=== PATIENT | female | born 1945 | race Asian ===

== ENCOUNTER 2022-04-27 18:57 | Inpatient (IN) | payer MEDICARE, MEDICAID ==
[~2022-04-27] VITALS: Ht 162.6 cm; Wt 61.0 kg
[2022-04-27 21:18] LABS: Basophils # (auto) 0 10 ^3/uL (0-0.2); Basophils % (auto) 0.5 % (0.0-2.0); Eosinophils # (auto) 0 10 ^3/uL (0-0.8); Eosinophils % (auto) 0.8 % (0.0-7.0); Hematocrit 47.3 % (36.0-46.0); Hemoglobin 15.4 g/dL (12.2-16.2); Lymphocytes # (auto) 1.3 10 ^3/uL (0.4-5.4); Lymphocytes % (auto) 24.5 % (10.0-50.0); Mean Corpuscular Hgb Conc. 32.5 g/dL (32.0-36.0); Mean Corpuscular Volume 95.3 fL (80.0-100.0); Monocytes # (auto) 0.4 10 ^3/uL (0-1.3); Monocytes % (auto) 7.7 % (0.0-12.0); Neutrophils # (auto) 3.6 10 ^3/uL (1.6-8.6); Neutrophils % (auto) 66.5 % (37.0-80.0); Nucleated Red Blood Cells % 0.1 %; Red Blood Cells 4.96 10^6/uL (4.0-5.20); White Blood Cell 5.4 10^3/uL (4.4-10.8)
[2022-04-27 21:29] LABS: INR 1.12 (0.9-1.15); Partial Thromboplastin Time 25.8 sec (24.6-33.4)
[2022-04-27 21:31] LABS: Potassium 4.6 mmol/L (3.5-5.1)
[2022-04-27 21:32] LABS: Albumin 3.1 g/dL (3.4-5.0); BUN/Creatinine Ratio 31.3
[2022-04-27 21:34] LABS: Bilirubin, Total 0.9 mg/dL (0.2-1.0); Total Protein 6.6 g/dL (6.4-8.2)
[2022-04-27] MEDS ORDERED: ENOXAPARIN SOD 60 MG/0.6 ML SYRINGE SC ONE (22:30)
[2022-04-27] MEDS ORDERED: AZITHROMYCIN 500MG/ 250ML 250 ML IV ONE (22:30)
[2022-04-27] MEDS ORDERED: FUROSEMIDE 20 MG/2 ML VIAL IV ONE (22:30)
[2022-04-27] MEDS ORDERED: DEXTROSE (50%) 50ML SYRG IV PRN (23:15)
[2022-04-27] MEDS ORDERED: ACETAMINOPHEN 325 MG TAB PO PRN (23:15)
[2022-04-27] MEDS ORDERED: HYDROcodone-ACET 5/325MG TAB PO PRN (23:15)
[2022-04-27] MEDS ORDERED: DOCUSATE SOD 100 MG CAP PO PRN (23:15)
[2022-04-27] MEDS ORDERED: ONDANSETRON HCL 4 MG/2 ML VIAL IV PRN (23:15)
[2022-04-27] MEDS ORDERED: MORPHINE SULFATE INJ 2 MG/ml SYRG IV PRN (23:30)
[2022-04-27] MEDS ORDERED: NITROGLYCERIN 0.4 MG SL TAB SL PRN (23:30)
[2022-04-28] MEDS ORDERED: MAGNESIUM SULFATE 1GM/100ML 100 ML IV ONE
[2022-04-28 01:48] LABS: Urine Bacteria FEW /hpf (None Seen); Urine Blood Negative /uL (Negative); Urine Mucus FEW (None Seen); Urine Specific Gravity 1.008 (1.001-1.035); Urine WBC 37 /hpf (0 - 5)
[2022-04-28 05:24] LABS: Basophils # (auto) 0 10 ^3/uL (0-0.2); Basophils % (auto) 0.7 % (0.0-2.0); Eosinophils # (auto) 0.1 10 ^3/uL (0-0.8); Eosinophils % (auto) 1.3 % (0.0-7.0); Hematocrit 46.2 % (36.0-46.0); Hemoglobin 15.1 g/dL (12.2-16.2); Lymphocytes # (auto) 1.9 10 ^3/uL (0.4-5.4); Lymphocytes % (auto) 36.9 % (10.0-50.0); Mean Corpuscular Hgb Conc. 32.6 g/dL (32.0-36.0); Mean Corpuscular Volume 95.1 fL (80.0-100.0); Monocytes # (auto) 0.6 10 ^3/uL (0-1.3); Monocytes % (auto) 10.5 % (0.0-12.0); Neutrophils # (auto) 2.7 10 ^3/uL (1.6-8.6); Neutrophils % (auto) 50.6 % (37.0-80.0); Nucleated Red Blood Cells % 0.1 %; Red Blood Cells 4.87 10^6/uL (4.0-5.20); Red Cell Distribution Width 14.7 % (11.8-14.3); White Blood Cell 5.3 10^3/uL (4.4-10.8)
[2022-04-28 05:38] LABS: Albumin 3.1 g/dL (3.4-5.0); Calcium 8.2 mg/dL (8.5-10.1); Potassium 3.5 mmol/L (3.5-5.1)
[2022-04-28] MEDS ORDERED: ALBUTEROL SULF HFA 90MCG INH 200DOSE IN SCH (06:00)
[2022-04-28] MEDS: SODIUM CHLOR 0.9% PF (SALINE LOCK) 10ML VIAL/SYR IV SCH ×2 (06:01→14:36)
[2022-04-28] MEDS: InsuLIN REG 1unit/0.01ml Soln (100units/ml) SC SCH ×4 (07:00→22:00)
[2022-04-28] MEDS: ACCU-CHEK COMFORT CURVE STRIP VI SCH ×4 (07:03→23:59)
[2022-04-28] MEDS: ASPirin 81 mg TAB PO SCH (10:25)
[2022-04-28] MEDS: FAMOTIDINE (10MG/ML) 2ML VL IV SCH (10:25)
[2022-04-28] MEDS: ENOXAPARIN SOD 30 MG/0.3 ML SYRINGE SC SCH (10:28)
[2022-04-28 22:00] VITALS: BP 148/87
[2022-04-28] MEDS ORDERED: CARVEDILOL 3.125 MG TAB PO ONE (23:45)
[2022-04-28] MEDS ORDERED: DAPA1TAB4 PO (23:54)
[2022-04-28] MEDS ORDERED: CARV3.1240 PO (23:54)
[2022-04-28] MEDS ORDERED: VERI5TAB PO (23:54)
[2022-04-28] MEDS ORDERED: SACU1TAB7 PO (23:54)
[2022-04-29] MEDS: AZITHROMYCIN 500MG/ 250ML 250 ML IV SCH ×2 (00:01→22:36)
[2022-04-29 05:00] VITALS: BP 147/89
[2022-04-29] MEDS: SODIUM CHLOR 0.9% PF (SALINE LOCK) 10ML VIAL/SYR IV SCH ×4 (06:06→21:16)
[2022-04-29] MEDS: InsuLIN REG 1unit/0.01ml Soln (100units/ml) SC SCH ×4 (06:06→21:23)
[2022-04-29] MEDS: ACCU-CHEK COMFORT CURVE STRIP VI SCH ×4 (06:08→21:16)
[2022-04-29 09:00] VITALS: BP 158/98
[2022-04-29] MEDS: FAMOTIDINE (10MG/ML) 2ML VL IV SCH (10:42)
[2022-04-29] MEDS: cefTRIAXone 1GM/50ML D5W 50 ML IV SCH ×2 (10:42→21:16)
[2022-04-29] MEDS: ASPirin 81 mg TAB PO SCH (10:42)
[2022-04-29] MEDS: ENOXAPARIN SOD 30 MG/0.3 ML SYRINGE SC SCH (10:42)
[2022-04-29] MEDS: ENTRESTO PO SCH ×2 (10:51→21:15)
[2022-04-29 13:00] VITALS: BP 127/78
[2022-04-29] MEDS ORDERED: ALBUTEROL SULF 2.5 MG/0.5ML(0.5%) NEB SOLN NEB PRN (13:45)
[2022-04-29 15:19] VITALS: BP 158/98
[2022-04-29] MEDS ORDERED: ALBUTEROL MEDNEB 2.5 mg/3ml NEB ONE ×2 (15:34→17:58)
[2022-04-29] MEDS: ALBUTEROL SULF 2.5 MG/0.5ML(0.5%) NEB SOLN NEB SCH ×2 (15:39→18:00)
[2022-04-29 17:00] VITALS: BP 147/92
[2022-04-29] MEDS: ATORVASTATIN 20 MG TAB PO SCH ×2 (21:14)
[2022-04-29 22:00] VITALS: BP 149/87
[2022-04-30] MEDS ORDERED: ALBUTEROL MEDNEB 2.5 mg/3ml NEB ONE ×2 (00:03→06:12)
[2022-04-30] MEDS: ALBUTEROL SULF 2.5 MG/0.5ML(0.5%) NEB SOLN NEB SCH ×2 (00:19→07:26)
[2022-04-30 05:00] VITALS: BP 142/83
[2022-04-30] MEDS: ACCU-CHEK COMFORT CURVE STRIP VI SCH ×4 (06:26→22:10)
[2022-04-30] MEDS: InsuLIN REG 1unit/0.01ml Soln (100units/ml) SC SCH ×4 (06:26→22:13)
[2022-04-30] MEDS: SODIUM CHLOR 0.9% PF (SALINE LOCK) 10ML VIAL/SYR IV SCH ×3 (06:26→22:09)
[2022-04-30 08:00] VITALS: BP 146/80
[2022-04-30 08:48] VITALS: BP 146/80
[2022-04-30] MEDS: FAMOTIDINE (10MG/ML) 2ML VL IV SCH (09:19)
[2022-04-30] MEDS: ASPirin 81 mg TAB PO SCH (09:19)
[2022-04-30] MEDS: ENOXAPARIN SOD 30 MG/0.3 ML SYRINGE SC SCH (09:20)
[2022-04-30] MEDS: ENTRESTO PO SCH ×2 (09:20→22:06)
[2022-04-30] MEDS: cefTRIAXone 1GM/50ML D5W 50 ML IV SCH ×2 (09:20→21:16)
[2022-04-30] MEDS ORDERED: ALBUTEROL MEDNEB 2.5 mg/3ml NEB NEB PRN (11:00)
[2022-04-30] MEDS: FUROSEMIDE 40 MG/4 ML VIAL IV SCH ×2 (11:14→17:53)
[2022-04-30] MEDS: ALBUTEROL MEDNEB 2.5 mg/3ml NEB NEB SCH ×2 (12:14→18:51)
[2022-04-30 13:22] VITALS: BP 137/86
[2022-04-30 16:40] VITALS: BP 130/80
[2022-04-30 22:00] VITALS: BP 156/78
[2022-04-30] MEDS ORDERED: SACUBITRIL-VALSARTAN 24mg/26mg TAB PO SCH (22:00)
[2022-04-30] MEDS: ATORVASTATIN 20 MG TAB PO SCH (22:05)
[2022-04-30] MEDS: AZITHROMYCIN 500MG/ 250ML 250 ML IV SCH (22:07)
[2022-05-01 05:00] VITALS: BP 135/72
[2022-05-01] MEDS: SODIUM CHLOR 0.9% PF (SALINE LOCK) 10ML VIAL/SYR IV SCH ×3 (06:14→21:45)
[2022-05-01] MEDS: ACCU-CHEK COMFORT CURVE STRIP VI SCH ×4 (06:14→21:46)
[2022-05-01] MEDS: InsuLIN REG 1unit/0.01ml Soln (100units/ml) SC SCH ×4 (06:14→21:51)
[2022-05-01] MEDS: FUROSEMIDE 40 MG/4 ML VIAL IV SCH ×2 (06:25→17:33)
[2022-05-01] MEDS: EMPAGLIFLOZIN 10 MG TAB PO SCH (06:25)
[2022-05-01] MEDS: ALBUTEROL MEDNEB 2.5 mg/3ml NEB NEB SCH ×3 (06:30→18:23)
[2022-05-01 07:40] VITALS: BP 129/75
[2022-05-01 09:30] VITALS: BP 129/75
[2022-05-01] MEDS: cefTRIAXone 1GM/50ML D5W 50 ML IV SCH ×2 (09:57→21:01)
[2022-05-01] MEDS: ASPirin 81 mg TAB PO SCH (09:58)
[2022-05-01] MEDS: ENTRESTO PO SCH ×2 (09:58→21:43)
[2022-05-01] MEDS: ENOXAPARIN SOD 30 MG/0.3 ML SYRINGE SC SCH (09:58)
[2022-05-01 12:42] VITALS: BP 139/60
[2022-05-01 16:13] VITALS: BP 136/79
[2022-05-01] MEDS: SODIUM CHLORIDE 0.9% 1,000 ML IV SCH (19:53)
[2022-05-01] MEDS: CARVEDILOL 3.125 MG TAB PO SCH (21:44)
[2022-05-01] MEDS: TEMAZEPAM 15 MG CAP PO PRN (21:45)
[2022-05-01] MEDS: AZITHROMYCIN 500MG/ 250ML 250 ML IV SCH (21:45)
[2022-05-01] MEDS: ATORVASTATIN 20 MG TAB PO SCH (21:45)
[2022-05-01 21:53] LABS: Basophils # (auto) 0 10 ^3/uL (0-0.2); Eosinophils # (auto) 0.1 10 ^3/uL (0-0.8); Eosinophils % (auto) 2.4 % (0.0-7.0); Hematocrit 47.8 % (36.0-46.0); Lymphocytes # (auto) 1.2 10 ^3/uL (0.4-5.4); Lymphocytes % (auto) 25.1 % (10.0-50.0); Mean Corpuscular Hemoglobin 31.4 pg (28.0-32.0); Mean Corpuscular Hgb Conc. 33.5 g/dL (32.0-36.0); Mean Corpuscular Volume 93.6 fL (80.0-100.0); Monocytes # (auto) 0.5 10 ^3/uL (0-1.3); Monocytes % (auto) 10.4 % (0.0-12.0); Neutrophils % (auto) 61.1 % (37.0-80.0); Nucleated Red Blood Cells % 0.1 %; Red Blood Cells 5.11 10^6/uL (4.0-5.20); Red Cell Distribution Width 14.8 % (11.8-14.3); White Blood Cell 4.9 10^3/uL (4.4-10.8)
[2022-05-01 22:00] VITALS: BP 111/71
[2022-05-01 22:06] LABS: Calcium 9.5 mg/dL (8.5-10.1); Potassium 3.2 mmol/L (3.5-5.1)
[2022-05-01 22:07] LABS: BUN/Creatinine Ratio 24.2
[2022-05-01 22:11] LABS: INR 1.09 (0.9-1.15)
[2022-05-02] VITALS (12 sets, daily range): BP systolic 109–139; BP diastolic 56–81
[2022-05-02] MEDS: SODIUM CHLOR 0.9% PF (SALINE LOCK) 10ML VIAL/SYR IV SCH ×3 (05:57→21:58)
[2022-05-02] MEDS: FUROSEMIDE 40 MG/4 ML VIAL IV SCH ×2 (06:00→17:38)
[2022-05-02] MEDS: EMPAGLIFLOZIN 10 MG TAB PO SCH (06:29)
[2022-05-02] MEDS: ACCU-CHEK COMFORT CURVE STRIP VI SCH ×4 (06:30→21:58)
[2022-05-02] MEDS: InsuLIN REG 1unit/0.01ml Soln (100units/ml) SC SCH ×4 (06:30→22:03)
[2022-05-02] MEDS ORDERED: POTASSIUM CHL 20MEQ/100ML 100 ML IV ONE (07:00)
[2022-05-02] MEDS: ALBUTEROL MEDNEB 2.5 mg/3ml NEB NEB SCH ×4 (07:28→18:31)
[2022-05-02] MEDS ORDERED: VANCOMYCIN 1GM/250ML 250 ML IV ONE (08:45)
[2022-05-02] MEDS ORDERED: fentaNYL CITRATE 100 MCG/2 ML VL ONE (09:26)
[2022-05-02] MEDS ORDERED: IODIXANOL 320MG/ML 100ML BTL IV ONE (09:26)
[2022-05-02] MEDS ORDERED: MIDAZOLAM HCL 2MG/2ML 2ml VIAL (1mg/ml) ONE (09:26)
[2022-05-02] MEDS ORDERED: VANCOMYCIN HCL 1000 MG VL ONE (09:27)
[2022-05-02] MEDS ORDERED: ceFAZolin 1GM VL ONE ×2 (09:27→10:04)
[2022-05-02] MEDS ORDERED: LIDOCAINE 2%HCL (LOCAL ANESTH.) INJ 20ML MDV ONE (09:31)
[2022-05-02] MEDS: ENTRESTO PO SCH ×2 (10:00→22:03)
[2022-05-02] MEDS: ENOXAPARIN SOD 30 MG/0.3 ML SYRINGE SC SCH (10:00)
[2022-05-02] MEDS ORDERED: POTASSIUM CHLORIDE 20 MEQ, LIDOCAINE 1% (LOCAL ANESTH.) 2 ML in SODIUM CHL 0.9% 100 ML IV ONE (10:00)
[2022-05-02] MEDS: ASPirin 81 mg TAB PO SCH (10:00)
[2022-05-02] MEDS ORDERED: LIDOCAINE 2%HCL (LOCAL ANESTH.) INJ 10ml MDV ONE (10:18)
[2022-05-02] MEDS: cefTRIAXone 1GM/50ML D5W 50 ML IV SCH ×2 (14:26→21:38)
[2022-05-02] MEDS: CARVEDILOL 3.125 MG TAB PO SCH ×2 (14:52→22:00)
[2022-05-02] MEDS: SODIUM CHLORIDE 0.9% 1,000 ML IV SCH ×2 (15:23→23:16)
[2022-05-02] MEDS: TEMAZEPAM 15 MG CAP PO PRN (21:32)
[2022-05-02] MEDS: DOXYCYCLINE 100 MG TAB/CAP PO SCH (21:33)
[2022-05-02] MEDS: ATORVASTATIN 20 MG TAB PO SCH (21:33)
[2022-05-02] MEDS: VANCOMYCIN 1GM/250ML 250 ML IV SCH (21:54)
[2022-05-03 05:00] VITALS: BP 141/88
[2022-05-03] MEDS: FUROSEMIDE 40 MG/4 ML VIAL IV SCH (06:26)
[2022-05-03] MEDS: EMPAGLIFLOZIN 10 MG TAB PO SCH (06:28)
[2022-05-03] MEDS: SODIUM CHLOR 0.9% PF (SALINE LOCK) 10ML VIAL/SYR IV SCH (06:29)
[2022-05-03] MEDS: InsuLIN REG 1unit/0.01ml Soln (100units/ml) SC SCH ×2 (06:30→12:11)
[2022-05-03] MEDS: ACCU-CHEK COMFORT CURVE STRIP VI SCH ×2 (06:30→12:11)
[2022-05-03] MEDS: ALBUTEROL MEDNEB 2.5 mg/3ml NEB NEB SCH ×4 (06:44→12:06)
[2022-05-03 09:05] VITALS: BP 135/81
[2022-05-03 09:06] LABS: BUN/Creatinine Ratio 19.3; Calcium 8.9 mg/dL (8.5-10.1); Magnesium 2.2 mg/dL (1.6-2.6); Potassium 3.7 mmol/L (3.5-5.1)
[2022-05-03] MEDS: DOXYCYCLINE 100 MG TAB/CAP PO SCH (10:31)
[2022-05-03] MEDS: VANCOMYCIN 1GM/250ML 250 ML IV SCH (10:34)
[2022-05-03] MEDS: ENTRESTO PO SCH (10:35)
[2022-05-03] MEDS: cefTRIAXone 1GM/50ML D5W 50 ML IV SCH (10:36)
[2022-05-03] MEDS: CARVEDILOL 3.125 MG TAB PO SCH (10:37)
[2022-05-03] MEDS ORDERED: DOX100T PO (11:57)
[2022-05-03 12:51] VITALS: BP 100/61
[2022-05-03] MEDS ORDERED: PNEUMOCOCCAL VACC POLYS 25 MCG/0.5 ML VIAL IM ONE (14:15)
[2022-05-03 14:58] VITALS: BP 135/81
== END 2022-05-03 16:00 | disposition home or self-care (01) | DRG 226 ==
LOC: EDBD 18:57 → ER 18:57 → TELE 23:22 → TELE-EAST 04-28 21:01
PROVIDERS: ADMIT Nurse Practitioner Family; ATTEND Internal Medicine
PROC: 0JH609Z Insertion of Cardiac Resynchronization Defibrillator Pulse Generator into Chest Subcutaneous Tissue and Fascia, Open Approach (ICD-10-PCS; principal; 2022-05-03)
PROC: 02HK3KZ Insertion of Defibrillator Lead into Right Ventricle, Percutaneous Approach (ICD-10-PCS; 2022-05-03)
PROC: 02HL3KZ Insertion of Defibrillator Lead into Left Ventricle, Percutaneous Approach (ICD-10-PCS; 2022-05-03)
PROC: 02H63KZ Insertion of Defibrillator Lead into Right Atrium, Percutaneous Approach (ICD-10-PCS; 2022-05-03)
DX: I13.0 Hypertensive heart and chronic kidney disease with heart failure and stage 1 through stage 4 chronic kidney disease, or unspecified chronic kidney disease (principal); I21.A1 Myocardial infarction type 2; I50.43 Acute on chronic combined systolic (congestive) and diastolic (congestive) heart failure; J96.01 Acute respiratory failure with hypoxia; J15.9 Unspecified bacterial pneumonia; I42.9 Cardiomyopathy, unspecified; E78.5 Hyperlipidemia, unspecified; E86.0 Dehydration; I44.7 Left bundle-branch block, unspecified; E11.9 Type 2 diabetes mellitus without complications; Z20.822 Contact with and (suspected) exposure to COVID-19; I34.0 Nonrheumatic mitral (valve) insufficiency; N18.9 Chronic kidney disease, unspecified
CPT/HCPCS: 33225; 33249; 36415; 71045; 80048; 80053; 81001; 82010; 82962; 83036; 83605; 83690; 83735; 83880; 84484; 85025; 85610; 85730; 86850; 86900; 86901; 87426; 87804; 93005; 94003; 94640; 96365; 96372; 96375; 99152; 99153; G0378; J0690; J0696; J1815; J2001; J2250; J3480; J3490; Q9967

== ENCOUNTER 2023-06-30 17:39 | Inpatient (IN) | payer OTHER, MEDICAID ==
[~2023-06-30] VITALS: Ht 154.9 cm; Wt 61.2 kg
[~2023-06-30 17:39] MED LIST: CARV3.1240 PO; DAPA1TAB4 PO; DOX100T PO; SACU1TAB7 PO; VERI5TAB PO
[2023-06-30 19:11] LABS: Basophils # (auto) 0.1 10 ^3/uL (0-0.2); Basophils % (auto) 0.8 % (0.0-2.0); Eosinophils # (auto) 0.1 10 ^3/uL (0-0.8); Eosinophils % (auto) 0.8 % (0.0-7.0); Hematocrit 45.4 % (36.0-46.0); Hemoglobin 14.8 g/dL (12.2-16.2); Lymphocytes # (auto) 1.6 10 ^3/uL (0.4-5.4); Lymphocytes % (auto) 25.4 % (10.0-50.0); Mean Corpuscular Hemoglobin 30.6 pg (28.0-32.0); Mean Corpuscular Hgb Conc. 32.7 g/dL (32.0-36.0); Mean Corpuscular Volume 93.8 fL (80.0-100.0); Monocytes # (auto) 0.4 10 ^3/uL (0-1.3); Monocytes % (auto) 7.2 % (0.0-12.0); Neutrophils # (auto) 4.1 10 ^3/uL (1.6-8.6); Neutrophils % (auto) 65.8 % (37.0-80.0); Nucleated Red Blood Cells % 0.1 %; Red Blood Cells 4.84 10^6/uL (4.0-5.20); Red Cell Distribution Width 14.9 % (11.8-14.3); White Blood Cell 6.2 10^3/uL (4.4-10.8)
[2023-06-30 19:28] LABS: Alanine Aminotransferase 31 U/L (7-40); Albumin 3.8 g/dL (3.2-4.8); Alkaline Phosphatase 61 U/L (46-116); Anion Gap 7 (5-15); Aspartate Aminotransferase 24 U/L (13-40); Bilirubin, Total 1.5 mg/dL (0.2-1.0); Blood Urea Nitrogen 30 mg/dL (9-23); Calcium 9.5 mg/dL (8.7-10.4); Carbon Dioxide 31 mmol/L (20-30); Chloride 104 mmol/L (98-107); Glucose 131 mg/dL (74-106); Potassium 4.6 mmol/L (3.5-5.1); Sodium 142 mmol/L (136-145); Total Protein 6.3 g/dL (5.7-8.2)
[2023-06-30] MEDS ORDERED: ONDANSETRON HCL 4 MG/2 ML VIAL IV PRN (23:00)
[2023-06-30] MEDS ORDERED: HYDROcodone-ACET 5/325MG TAB PO PRN (23:00)
[2023-06-30] MEDS ORDERED: ACETAMINOPHEN 325 MG TAB PO PRN (23:00)
[2023-06-30] MEDS ORDERED: DOCUSATE SOD 100 MG CAP PO PRN (23:00)
[2023-06-30] MEDS ORDERED: DEXTROSE (50%) 50ML SYRG IV PRN (23:00)
[2023-06-30] MEDS ORDERED: hydrALAZINE HCL 20 MG/ML VL IV PRN (23:00)
[2023-06-30] MEDS ORDERED: MORPHINE SULFATE INJ 2 MG/ml SYRG IV PRN (23:15)
[2023-06-30] MEDS ORDERED: NITROGLYCERIN 0.4 MG SL TAB SL PRN (23:15)
[2023-06-30 23:17] VITALS: PULSE 78; RESP 27; O2SAT 98
[2023-06-30] MEDS: FUROSEMIDE 100 MG/10ML VIAL IV ONE (23:24)
[2023-07-01] VITALS (7 sets, daily range): BP systolic 112–145; BP diastolic 56–76; PULSE 55–79; RESP 17–20; TEMP 97.3–98.2; O2SAT 2–100
[2023-07-01 05:23] LABS: Basophils # (auto) 0.1 10 ^3/uL (0-0.2); Basophils % (auto) 1.1 % (0.0-2.0); Eosinophils # (auto) 0.1 10 ^3/uL (0-0.8); Eosinophils % (auto) 1.7 % (0.0-7.0); Hematocrit 45.2 % (36.0-46.0); Hemoglobin 14.8 g/dL (12.2-16.2); Lymphocytes # (auto) 1.8 10 ^3/uL (0.4-5.4); Lymphocytes % (auto) 29.4 % (10.0-50.0); Mean Corpuscular Hemoglobin 30.5 pg (28.0-32.0); Mean Corpuscular Hgb Conc. 32.7 g/dL (32.0-36.0); Mean Corpuscular Volume 93.2 fL (80.0-100.0); Monocytes # (auto) 0.6 10 ^3/uL (0-1.3); Monocytes % (auto) 10.1 % (0.0-12.0); Neutrophils # (auto) 3.6 10 ^3/uL (1.6-8.6); Neutrophils % (auto) 57.7 % (37.0-80.0); Nucleated Red Blood Cells % 0.1 %; Red Blood Cells 4.85 10^6/uL (4.0-5.20); Red Cell Distribution Width 14.9 % (11.8-14.3); White Blood Cell 6.2 10^3/uL (4.4-10.8)
[2023-07-01 05:42] LABS: Alanine Aminotransferase 26 U/L (7-40); Albumin 3.6 g/dL (3.2-4.8); Alkaline Phosphatase 56 U/L (46-116); Anion Gap 9 (5-15); Aspartate Aminotransferase 19 U/L (13-40); BUN/Creatinine Ratio 23.2 (10.0-20.0); Blood Urea Nitrogen 19 mg/dL (9-23); Calcium 8.8 mg/dL (8.5-10.1); Carbon Dioxide 28 mmol/L (20-30); Chloride 106 mmol/L (98-107); Glucose 94 mg/dL (74-106); Potassium 3.1 mmol/L (3.5-5.1); Sodium 143 mmol/L (136-145)
[2023-07-01 05:43] LABS: Bilirubin, Total 1.7 mg/dL (0.2-1.0); Total Protein 5.8 g/dL (5.7-8.2)
[2023-07-01] MEDS: SODIUM CHLOR 0.9% PF (SALINE LOCK) 10ML VIAL/SYR IV SCH (06:00)
[2023-07-01] MEDS ORDERED: SACU1TAB PO (06:33)
[2023-07-01] MEDS ORDERED: FURO40TA4 PO (06:33)
[2023-07-01] MEDS: ACCU-CHEK COMFORT CURVE STRIP VI SCH (06:42)
[2023-07-01] MEDS: InsuLIN REG 1unit/0.01ml Soln (100units/ml) SC SCH (06:43)
[2023-07-01 09:19] LABS: Hepatitis B Surface Antigen Negative (Negative)
[2023-07-01 09:40] LABS: Hepatitis C Antibody Negative (Negative)
[2023-07-01] MEDS ORDERED: FUROSEMIDE 40 MG/4 ML VIAL IV SCH (10:00)
[2023-07-01] MEDS: SPIRONOLACTONE 25 MG TAB PO ONE (10:01)
[2023-07-01] MEDS: FUROSEMIDE 40 MG/4 ML VIAL IV SCH (10:02)
[2023-07-01] MEDS: POTASSIUM CHL 20 Meq TABLET PO ONE (10:02)
[2023-07-01] MEDS: ASPirin 81 mg TAB PO SCH (10:03)
[2023-07-01] MEDS: metOLazone 5 MG TAB PO ONE (10:03)
[2023-07-01] MEDS: CARVEDILOL 3.125 MG TAB PO SCH (10:04)
[2023-07-01] MEDS: EMPAGLIFLOZIN 10 MG TAB PO SCH (10:05)
[2023-07-01] MEDS ORDERED: METF-370 PO (16:42)
[2023-07-01] MEDS ORDERED: AMLO1TAB23 PO (16:42)
[2023-07-01] MEDS ORDERED: FURO20TA3 PO (16:42)
[2023-07-01] MEDS: ATORVASTATIN 20 MG TAB PO SCH (21:30)
[2023-07-01] MEDS ORDERED: InsuLIN REG 1unit/0.01ml Soln (100units/ml) SC SCH (22:00)
[2023-07-02] VITALS (10 sets, daily range): BP systolic 84–136; BP diastolic 48–80; PULSE 71–83; RESP 16–20; TEMP 97.8–98.5; O2SAT 92–97
[2023-07-02 05:58] LABS: Anion Gap 6 (5-15); Carbon Dioxide 32 mmol/L (20-30); Chloride 98 mmol/L (98-107); Potassium 3.8 mmol/L (3.5-5.1)
[2023-07-02 05:59] LABS: Calcium 9.9 mg/dL (8.7-10.4)
[2023-07-02 06:04] LABS: BUN/Creatinine Ratio 19.1 (10.0-20.0); Blood Urea Nitrogen 17 mg/dL (9-23); Glucose 107 mg/dL (74-106)
[2023-07-02 06:05] LABS: Magnesium 2.2 mg/dL (1.6-2.6)
[2023-07-02 06:20] LABS: Sodium 136 mmol/L (136-145)
[2023-07-02] MEDS: TEMAZEPAM 15 MG CAP PO ONE (23:32)
[2023-07-03] VITALS (7 sets, daily range): BP systolic 72–118; BP diastolic 42–84; PULSE 69–82; RESP 18–20; TEMP 97.5–98.4; O2SAT 96–100
[2023-07-03] MEDS: FUROSEMIDE 40 MG/4 ML VIAL IV SCH (06:13)
[2023-07-03] MEDS ORDERED: AZIT-74 PO (09:55)
[2023-07-03] MEDS: AZITHROMYCIN 250 MG TAB PO SCH (11:34)
== END 2023-07-03 16:35 | disposition home or self-care (01) | DRG 291 ==
LOC: EDBD 17:39 → EDUNIT# 17:39 → ER 17:39 → TELE 23:07 → TELE-CENTR 07-01 05:20
PROVIDERS: ADMIT Nurse Practitioner Family; ATTEND Internal Medicine
DX: I13.0 Hypertensive heart and chronic kidney disease with heart failure and stage 1 through stage 4 chronic kidney disease, or unspecified chronic kidney disease (principal); I50.23 Acute on chronic systolic (congestive) heart failure; I42.8 Other cardiomyopathies; J06.9 Acute upper respiratory infection, unspecified; N18.9 Chronic kidney disease, unspecified; E87.6 Hypokalemia; E78.5 Hyperlipidemia, unspecified; E11.22 Type 2 diabetes mellitus with diabetic chronic kidney disease; Z95.810 Presence of automatic (implantable) cardiac defibrillator
CPT/HCPCS: 36415; 71045; 80048; 80053; 83735; 83880; 84484; 85025; 86706; 86803; 87340; 93005; 93306; 99291; G0378